=== PATIENT | female | born 1955 | race Caucasian/White ===

== ENCOUNTER 2024-04-19 05:42 | Day surgery (SDC) | payer MEDICARE ==
[2024-04-18 12:12] VITALS: BMI 24.3
[2024-04-19] MEDS ORDERED: Lidocaine 2% PF 100 mg/5 ml Syringe ONE (07:17)
[2024-04-19] MEDS ORDERED: PROPOFOL 40 ML ONE (07:17)
[2024-04-19] MEDS ORDERED: Ondansetron PF 4 MG/2 ML Vial ONE (08:25)
== END 2024-04-19 11:05 | disposition home or self-care (01) ==
LOC: SDC 05:42
PROVIDERS: ATTEND Internal Medicine Gastroenterology
DX: D12.0 Benign neoplasm of cecum (principal); K63.5 Polyp of colon; K62.1 Rectal polyp; K57.30 Diverticulosis of large intestine without perforation or abscess without bleeding; K64.9 Unspecified hemorrhoids; K21.9 Gastro-esophageal reflux disease without esophagitis; K44.9 Diaphragmatic hernia without obstruction or gangrene; E78.00 Pure hypercholesterolemia, unspecified; F41.9 Anxiety disorder, unspecified; J44.9 Chronic obstructive pulmonary disease, unspecified; I10 Essential (primary) hypertension; Z90.710 Acquired absence of both cervix and uterus; Z79.899 Other long term (current) drug therapy; Z79.51 Long term (current) use of inhaled steroids; Z88.5 Allergy status to narcotic agent; Z87.891 Personal history of nicotine dependence; Z87.59 Personal history of other complications of pregnancy, childbirth and the puerperium
CPT/HCPCS: 43239; 45380; 45385; J2003; J2405; J2704; 88305